=== PATIENT | female | born 1955 | race Caucasian/White ===

== ENCOUNTER 2017-05-04 22:29 | Inpatient (IN) | payer MEDICAID ==
[~2017-05-04] VITALS: Ht 165.1 cm; Wt 82.1 kg
[2017-05-04] MEDS ORDERED: LORazepam 2MG/ML-1ML VIAL ONE (22:47)
[2017-05-04] MEDS ORDERED: LORazepam 2MG/ML-1ML VIAL IM ONE (23:00)
[2017-05-05] LABS: Basophils # (auto) 0.1 uL; Basophils % (auto) 0.7 % (0.0-2.0); Eosinophils # (auto) 0 uL; Hematocrit 35.8 % (36.0-46.0); Hemoglobin 12.1 g/dL (12.2-16.2); Lymphocytes # (auto) 1.7 uL; Mean Corpuscular Hemoglobin 30.3 pg (28.0-32.0); Mean Corpuscular Hgb Conc. 33.9 g/dL (32.0-36.0); Mean Corpuscular Volume 89.4 fL (80.0-100.0); Mean Platelet Volume 8.3 fL (6.9-10.8); Monocytes # (auto) 1.3 uL; Monocytes % (auto) 9.3 % (0.0-12.0); Neutrophils # (auto) 10.7 uL; Platelet Count (auto) 319 10^3/uL (140-450); Red Cell Distribution Width 13.8 % (11.8-14.3); White Blood Cell 13.8 10^3/uL (4.4-10.8)
[2017-05-05 00:18] LABS: Albumin 3.7 g/dL (3.4-5.0); Anion Gap 15 (5-15); Aspartate Aminotransferase 33 U/L (15-37); BUN/Creatinine Ratio 19.7; Blood Urea Nitrogen 45 mg/dL (7-18); Calcium 9.1 mg/dL (8.5-10.1); Carbon Dioxide 19 mmol/L (21-32); Chloride 104 mmol/L (98-107); GFR African American 28 mL/min; GFR Non-African American 23 mL/min; Glucose 94 mg/dL (74-106); Potassium 3.9 mmol/L (3.5-5.1); Sodium 138 mmol/L (136-145)
[2017-05-05 00:21] LABS: Alkaline Phosphatase 92 U/L (45-117); Bilirubin, Total 0.7 mg/dL (0.2-1.0); Total Protein 7.8 g/dL (6.4-8.2)
[2017-05-05] MEDS ORDERED: SODIUM CHLORIDE 0.9% 1,000 ML IV ONE (00:30)
[2017-05-05 00:58] LABS: Urine Bilirubin Negative (Negative); Urine Blood 1+ /uL (Negative); Urine Color Yellow (Yellow); Urine Glucose Normal (Normal); Urine Hyaline Cast FEW /lpf (0 - 2); Urine Ketone Negative (Negative); Urine Mucus FEW (None Seen); Urine Nitrite Negative (Negative); Urine RBC 28 /hpf (0 - 4); Urine Squamous Epithelial Cell FEW /hpf (<5)
[2017-05-05] MEDS ORDERED: LORazepam 2MG/ML-1ML VIAL IV ONE (01:45)
[2017-05-05] MEDS ORDERED: cefTRIAXone 1GM/50ML D5W 50 ML IV ONE (02:30)
[2017-05-05] MEDS ORDERED: ACETAMINOPHEN 325 MG TAB PO ONE ×2 (04:08→04:15)
[2017-05-05] MEDS ORDERED: ONDANSETRON HCL 4 MG/2 ML VIAL IV PRN (05:45)
[2017-05-05] MEDS ORDERED: HALOPERIDOL LACTATE 5 MG/ML INJ VIAL IM ONE (05:45)
[2017-05-05] MEDS ORDERED: ACETAMINOPHEN 325 MG TAB PO PRN (05:45)
[2017-05-05] MEDS ORDERED: MORPHINE SULF INJ 2 MG/ML SYRINGE 1ML IV PRN (05:45)
[2017-05-05] MEDS ORDERED: NITROGLYCERIN 0.4 MG SL TAB SL PRN (05:45)
[2017-05-05] MEDS ORDERED: METOPROLOL TARTRATE 1MG/1ML-5ML VIAL IV ONE (05:45)
[2017-05-05] MEDS ORDERED: LORazepam 2MG/ML-1ML VIAL IV PRN (05:45)
[2017-05-05 06:05] LABS: Allen Test Yes; Base Excess -5.4 mmol/L (-2.0-2.0); Blood COHb 0.3 % (0.5-1.5); Blood MetHb 0.3 % (0.0-1.5); HCO3 18.4 mmol/L (22-26.0); MODE ROOM AIR; O2Hb 92.4 % (94.0-97.0); PCO2 30.7 mmHg (35.0-45.0); PCO2(T) 31.4 mmHg (35.0-45.0); PO2(T) 73.4 mmHg (80.0-100.0); Sample Type Arterial; pH 7.395 (7.350-7.450)
[2017-05-05] MEDS: SODIUM CHLORIDE 0.9% 1,000 ML IV SCH ×2 (06:20→20:05)
[2017-05-05] MEDS: ENOXAPARIN SOD 30 MG/0.3 ML SYRINGE SC SCH (09:51)
[2017-05-05 21:35] VITALS: BP 144/70
[2017-05-05 22:00] VITALS: BP 144/70
[2017-05-06 05:00] VITALS: BP 124/71
[2017-05-06 05:57] LABS: Basophils # (auto) 0.1 uL; Basophils % (auto) 0.6 % (0.0-2.0); Eosinophils # (auto) 0 uL; Eosinophils % (auto) 0.5 % (0.0-7.0); Hemoglobin 11.3 g/dL (12.2-16.2); Lymphocytes # (auto) 1.5 uL; Lymphocytes % (auto) 15.8 % (10.0-50.0); Mean Corpuscular Hemoglobin 31.6 pg (28.0-32.0); Mean Corpuscular Hgb Conc. 35.2 g/dL (32.0-36.0); Mean Corpuscular Volume 89.7 fL (80.0-100.0); Mean Platelet Volume 8.5 fL (6.9-10.8); Monocytes # (auto) 0.8 uL; Monocytes % (auto) 8.1 % (0.0-12.0); Neutrophils # (auto) 6.9 uL; Platelet Count (auto) 274 10^3/uL (140-450); Red Cell Distribution Width 13.8 % (11.8-14.3); White Blood Cell 9.3 10^3/uL (4.4-10.8)
[2017-05-06 06:27] LABS: Albumin 2.7 g/dL (3.4-5.0); BUN/Creatinine Ratio 19.6; Bilirubin, Total 1.1 mg/dL (0.2-1.0); Calcium 8.3 mg/dL (8.5-10.1); Magnesium 2.4 mg/dL (1.6-2.6); Potassium 3.6 mmol/L (3.5-5.1); Total Protein 6.1 g/dL (6.4-8.2)
[2017-05-06 09:21] VITALS: BP 125/75
[2017-05-06] MEDS: ENOXAPARIN SOD 30 MG/0.3 ML SYRINGE SC SCH (10:20)
[2017-05-06] MEDS ORDERED: cefTRIAXone 1GM/50ML D5W 50 ML IV ONE (10:45)
[2017-05-06] MEDS ORDERED: ENOXAPARIN SOD 40 MG/0.4 ML SYRINGE SC ONE (11:00)
[2017-05-06 13:00] VITALS: BP 130/80
[2017-05-06 17:00] VITALS: BP 153/76
[2017-05-06] MEDS: SODIUM CHLORIDE 0.9% 1,000 ML IV SCH (17:39)
[2017-05-06] MEDS: HYDROcodone-ACET 5/325MG TAB PO PRN (17:43)
[2017-05-06 20:00] VITALS: BP 127/75
[2017-05-06 22:00] VITALS: BP 127/75
[2017-05-07] MEDS: HYDROcodone-ACET 5/325MG TAB PO PRN (02:19)
[2017-05-07 05:00] VITALS: BP 108/61
[2017-05-07 05:35] LABS: BUN/Creatinine Ratio 24.7; Calcium 8.9 mg/dL (8.5-10.1); Potassium 3.6 mmol/L (3.5-5.1)
[2017-05-07 08:00] VITALS: BP 138/85
[2017-05-07] MEDS: cefTRIAXone 1GM/50ML D5W 50 ML IV SCH (09:30)
[2017-05-07 09:42] VITALS: BP 138/85
[2017-05-07] MEDS: ENOXAPARIN SOD 40 MG/0.4 ML SYRINGE SC SCH (10:41)
[2017-05-07 11:44] VITALS: BP 129/76
[2017-05-07 17:01] VITALS: BP 153/91
[2017-05-07 21:37] VITALS: BP 124/73
[2017-05-07] MEDS: SODIUM CHLORIDE 0.9% 1,000 ML IV SCH (23:01)
[2017-05-08 04:52] VITALS: BP 129/78
[2017-05-08 07:45] VITALS: BP 127/67
[2017-05-08] MEDS: cefTRIAXone 1GM/50ML D5W 50 ML IV SCH (09:34)
[2017-05-08] MEDS: ENOXAPARIN SOD 40 MG/0.4 ML SYRINGE SC SCH (09:34)
[2017-05-08] MEDS ORDERED: LEVO750T2 PO (10:07)
[2017-05-08] MEDS ORDERED: NITR-48 PO (10:11)
[2017-05-08 13:00] VITALS: BP 143/71
[2017-05-08 13:51] VITALS: BP 143/71
[2017-05-08 17:18] VITALS: BP 138/88
== END 2017-05-08 17:00 | disposition home or self-care (01) | DRG 720 ==
LOC: EDBD 22:29 → ER 22:44 → TELE 22:45 → TELE-CENTR 05-05 21:35
PROVIDERS: ADMIT Internal Medicine; ATTEND Internal Medicine
DX: A41.9 Sepsis, unspecified organism (principal); N17.0 Acute kidney failure with tubular necrosis; G93.41 Metabolic encephalopathy; N39.0 Urinary tract infection, site not specified; N13.30 Unspecified hydronephrosis; F15.90 Other stimulant use, unspecified, uncomplicated; F12.90 Cannabis use, unspecified, uncomplicated; F41.9 Anxiety disorder, unspecified; R33.9 Retention of urine, unspecified; N18.2 Chronic kidney disease, stage 2 (mild); I12.9 Hypertensive chronic kidney disease with stage 1 through stage 4 chronic kidney disease, or unspecified chronic kidney disease; N81.4 Uterovaginal prolapse, unspecified; Z83.3 Family history of diabetes mellitus; Z71.51 Drug abuse counseling and surveillance of drug abuser
CPT/HCPCS: 36415; 36600; 51702; 70450; 70553; 71010; 74176; 80048; 80053; 80061; 80307; 80320; 81001; 82140; 82805; 83605; 83735; 84443; 85025; 87040; 87086; 87088; 87186; 96361; 96365; 96375; J0696